=== PATIENT | male | born 1970 | race Caucasian/White ===

== ENCOUNTER 2018-11-22 19:52 | Emergency (ER) | payer OTHER ==
[2018-11-22 20:05] VITALS: BP 154/107
--- NOTE | 2018-11-22 20:21 | EDPHY ---
H & P Time Seen by Provider: 11/22/18 20:10 HPI/ROS: CHIEF COMPLAINT: Right upper tooth HISTORY OF PRESENT ILLNESS: The patient is a 48-year-old male who presents emergency department right upper molar pain. Patient states he broke his tooth approximately 6 months ago. He had been doing well. However, last night he developed tooth pain. It is moderate. It is cold sensitive. The patient states he has an appointment with the dentist on Saturday. No fevers or chills. REVIEW OF SYSTEMS: Negative Past Medical/Surgical History: noncontributory Smoking Status: Never smoked Physical Exam: Vitals noted General Appearance: Alert and no distress. Head/ENT: Pupils equal. Patient has a noted broken right upper molar. There is no surrounding erythema. No swelling. No discharge. Respiratory: No respiratory distress. Cardiac: regular rate and rhythm. Extremities: Full range of motion, normal appearing. Skin: No rashes or lesions. Neuro: Alert. Normal mood and affect. Constitutional: Initial Vital Signs Temperature (C) 36.5 C 11/22/18 20:01 Heart Rate 63 11/22/18 20:01 Respiratory Rate 18 11/22/18 20:01 Blood Pressure 154/107 H 11/22/18 20:01 O2 Sat (%) 97 11/22/18 20:01 O2 Delivery Mode Room Air Allergies/Adverse Reactions: No Known Allergies Allergy (Unverified 08/22/10 01:50) Home Medications: Medication Instructions Recorded NO HOME MEDS 08/22/10 Hydrocodone/APAP 5/325 [[place] 1 - 2 tab PO Q4 #13 tab 11/22/18 5/325 (RX)] Penicillin V Potassium [Pen Vk] 500 mg PO TID #21 tab 11/22/18 Medical Decision Making ED Course/Re-evaluation: In the emergency department I discussed possible etiologies with the patient. I answered all of his questions. I discussed the importance of following up with a dentist. He will be given a course of antibiotics. He was given a prescription of Vicodin. Differential Diagnosis: My differential includes but is not limited to dental fracture, dental abscess, tooth ache Departure - Departure Disposition: Home, Routine, Self-Care Clinical Impression: Toothache Condition: Good Instructions: Toothache (ED) Additional Instructions: Return with increasing fever, pain or any other concerns. Take your entire course of antibiotics. You need to be evaluated by dentist. You can see year own dentist or use the contact information provided. Call Saturday morning to make an appointment. Referrals: [facility] [Outside] - As per Instructions [facility] [Outside] - As per Instructions Prescriptions: Hydrocodone/APAP 5/325 [[place] 5/325 (RX)] 1 - 2 tab PO Q4 #13 tab Penicillin V Potassium [Pen Vk] 500 mg PO TID #21 tab
[2018-11-22] MEDS ORDERED: HYDROCOD/APAP 5/325 PREPACK#6 BTL TAKEHOME ONE (20:35)
[2018-11-22] MEDS ORDERED: PENICILLIN VK 500 MG TAB PO ONE (20:35)
== END 2018-11-22 20:47 | disposition home or self-care (01) ==
DX: K08.89 Other specified disorders of teeth and supporting structures (principal)